=== PATIENT | male | born 2000 | race Two or more races ===

== ENCOUNTER 2022-04-06 02:48 | Emergency (ER) | payer OTHER ==
[~2022-04-06] VITALS: Ht 165.1 cm; Wt 68.2 kg
[2022-04-06 02:53] VITALS: BP 125/60
== END 2022-04-06 03:19 | disposition home or self-care (01) ==
LOC: EMS 02:50
DX: F10.129 Alcohol abuse with intoxication, unspecified (principal)
CPT/HCPCS: 99283; Z7502